=== PATIENT | male | born 1980 | race African-American/Black ===

== ENCOUNTER 2020-11-12 00:37 | Emergency (ER) | payer SELFPAY ==
[~2020-11-12] VITALS: Ht 180 cm; Wt 70.3 kg
[2020-11-12 00:53] VITALS: BP 163/71
[2020-11-12] MEDS ORDERED: LIDO20SO23 MM (01:11)
[2020-11-12] MEDS ORDERED: RX-AMOXICILLIN 500 MG CAP #3 PPK PO STA (01:11)
[2020-11-12] MEDS ORDERED: AMOX875T2 PO (01:11)
[2020-11-12] MEDS ORDERED: NAPR500T8 PO (01:11)
[2020-11-12] MEDS ORDERED: RX-NAPROXEN (NAPROSYN) 250 MG TAB PPK#4 PO STA (01:11)
--- NOTE | 2020-11-12 01:11 | ED EENT ---
History of Present Illness General Chief Complaint: Dental Problems/Pain Stated Complaint: TOOTH ACHE Nursing Triage Note: intermittant right upper dental pain x 1 week, reports worse tonight. Source: patient History of Present Illness Date Seen by Provider: Nov 12, 2020 Time Seen by Provider: 01:00 Initial Comments PT ARRIVES VIA POV FROM HOME C/O DENTAL PAIN TO RIGHT UPPER MOLAR / PREMOLAR AREA X 1 WEEK, WORSE TONIGHT NO RELIEF WITH TYLENOL FEELS SWOLLEN AROUND ADJACENT GUM, BUT NO SWELLING TO FACE NO FEVER HAS HAD SIMILAR PROBLEMS IN THE PAST, NO PRIOR DENTAL WORK ON THIS TOOTH PCP: NONE--JUST MOVED HERE. WORKS AT [employer] IN [place]. NO DENTIST ANYWHERE Allergies and Home Medications Allergies Coded Allergies: No Known Drug Allergies (Unverified , 11/12/20) Home Medications Amoxicillin 875 Mg Tablet, 875 MG PO BID Prescribed by: GHASSAN STEARNS on 11/12/20110 Lidocaine HCl 15 Ml Solution, 1-2 ML MM [id number] Prescribed by: GHASSAN STEARNS on 11/12/20110 Naproxen 500 Mg Tablet.dr, 500 MG PO BID Prescribed by: GHASSAN STEARNS on 11/12/20110 Patient Home Medication List Home Medication List Reviewed: Yes Review of Systems Review of Systems Constitutional: no symptoms reported Mouth: see HPI Throat: no symptoms reported Respiratory: no symptoms reported Cardiovascular: no symptoms reported Gastrointestinal: no symptoms reported Skin: no symptoms reported Neurological: No Symptoms Reported Past Auxcuuh-Orlnzc-Ofqqgm Hx Past Med/Social Hx: Reviewed and Corrections made Patient Social History Alcohol Use: Denies Use Smoking Status: Never a Smoker 2nd Hand Smoke Exposure: No Recent Infectious Disease Expo: No Recent Hopitalizations: No Immunizations Up To Date Tetanus Booster (TDap): Unknown Seasonal Allergies Seasonal Allergies: No Past Medical History Surgeries: No Respiratory: No Cardiac: No Neurological: No Genitourinary: No Gastrointestinal: No Musculoskeletal: No Endocrine: No HEENT: No Cancer: No Psychosocial: No Integumentary: No Blood Disorders: No Physical Exam Vital Signs Vital Signs - First Documented 11/12/20 00:53 Temp 36.8 Pulse 63 Resp 16 B/P (MAP) 163/71 (101) Pulse Ox 100 O2 Delivery Room Air Height, Weight, BMI Height: '" Weight: lbs. oz. kg; 21.00 BMI Method: General Appearance: WD/WN, no apparent distress Eyes: bilateral eye normal inspection Ears: bilateral ear auricle normal, bilateral ear canal normal, bilateral ear TM normal Nose: normal inspection Mouth/Throat: No mandibular swelling, No maxillary swelling, No trismus; other (TENDERNESS AND MILD ADJACENT GUM SWELLING TO RIGHT UPPER FIRST MOLAR. MULTIPLE FRONT TEETH WITH GOLD CAPS. ) Neck: non-tender, full range of motion, supple, normal inspection; No lymphadenopathy (R), No lymphadenopathy (L) Cardiovascular: regular rate, rhythm, no murmur Respiratory: normal breath sounds Neurologic/Psychiatric: motor analyst II-XII nml as tested, no motor/sensory deficits, alert, normal mood/affect, oriented x 3 Skin: normal color (PT IS BLACK), warm/dry, tattoos/piercings (EXTENSIVE TATTOOS OVER ENTIRE BODY INCLUDING FACE) Progress/Results/Core Measures Results/Orders My Orders Orders - GHASSAN STEARNS DO Rx-Amoxicillin Capsule (Rx-Polymox Capsu (11/12/20 01:11) Rx-Naproxen (Rx-Naprosyn) (11/12/20 01:11) Lidocaine 2% Viscous 15 Ml (Xylocaine Vi (11/12/20 01:15) Vital Signs/I&O 11/12/20 00:53 Temp 36.8 Pulse 63 Resp 16 B/P (MAP) 163/71 (101) Pulse Ox 100 O2 Delivery Room Air Blood Pressure Mean: 101 Progress Progress Note : Progress Note PT STATES HE HAS [facility] AND PLANS ON GOING THERE H IMSELF IN THE FUTURE. ADVISED HIM TO FOLLOW UP WITH THE DENTAL CLINIC THERE FOR FURTHER CARE OF THIS PROBLEM. Departure Impression Primary Impression: Dental infection Disposition: HOME, SELF-CARE Condition: Stable Departure-Patient Inst. Referrals: NO,LOCAL PHYSICIAN (PCP) Primary Care Physician [facility] Patient Instructions: Dental Pain (DC) Add. Discharge Instructions: FREQUENT SALT WATER SWISHES CONTINUE TYLENOL 1 GRAM 4 TIMES A DAY FOR PAIN OR FEVER FOLLOW UP WITH DENTAL CLINIC SOON POSSIBLE--CALL IN THE MORNING TO SCHEDULE AN APPOINTMENT All discharge instructions reviewed with patient and/or family. Voiced understanding. Scripts Naproxen (Naproxen) 500 Mg Tablet.dr 500 MG PO BID, #20 TAB Prov: GHASSAN STEARNS DO 11/12/20 Lidocaine HCl (Lidocaine HCl Viscous) 15 Ml Solution 1-2 ML MM [id number], #120 ML Prov: GHASSAN STEARNS DO 11/12/20 Amoxicillin (Amoxicillin) 875 Mg Tablet 875 MG PO BID, #20 TAB Prov: GHASSAN STEARNS DO 11/12/20 GHASSAN STEARNS DO Nov 12, 2020 01:11
[2020-11-12] MEDS ORDERED: LIDOCAINE 2% VISCOUS 15 ML UDC PO ONE (01:15)
== END 2020-11-12 01:24 | disposition home or self-care (01) ==
LOC: ER 00:40
DX: K04.7 Periapical abscess without sinus (principal)
CPT/HCPCS: 99283

== ENCOUNTER 2021-09-25 04:40 | Emergency (ER) | payer SELFPAY ==
[~2021-09-25] VITALS: Ht 180 cm; Wt 70.3 kg
[2021-09-25] MEDS ORDERED: KETOROLAC 60 MG/2 ML VIAL IM ONE (06:15)
--- NOTE | 2021-09-25 06:22 | ED Back Pain ---
General Chief Complaint: Back Problems Stated Complaint: RT CALF PAIN,UPPER RT SIDE BACK PAIN Nursing Triage Note: right upper calf, mid back pain x2 days, no injury. Source of Information: Patient Exam Limitations: No Limitations History of Present Illness Date Seen by Provider: Sep 25, 2021 Time Seen by Provider: 05:15 Initial Comments Patient to the ER by private conveyance with significant other chief complaint is awoken last night with some pain in his right back around the area of a knot. Has had this before in the past and it went away with some ibuprofen after about a day or so. No trauma no motor vehicle collisions falls or surgeries or other injuries. No imaging on his back. No numbness or tingling. Pain is on his right posterior thoracic ribs just inferior to the right scapula. He also noted some unrelated pain at the same time in the back of his right knee medial side. Worse with palpation or bending. Makes him limp when he walks. Again no trauma. No previous injuries or work-up. He does not have a primary care doctor. He has not take anything for the pain. He has had a 5-hour car ride in the last 4 days. No history of blood clots or family history of clotting diso rders. Allergies and Home Medications Allergies Coded Allergies: No Known Drug Allergies (Unverified , 11/12/20) Patient Home Medication List Home Medication List Reviewed: Yes Discontinued Medications Amoxicillin (Amoxicillin) 875 Mg Tablet, 875 MG PO BID Discontinued Reason: No Longer Taking Prescribed by: GHASSAN STEARNS on 11/12/20110 Last Action: Discontinued Lidocaine HCl (Lidocaine HCl Viscous) 15 Ml Solution, 1-2 ML MM [id number] Discontinued Reason: No Longer Taking Prescribed by: GHASSAN STEARNS on 11/12/20110 Last Action: Discontinued Naproxen (Naproxen) 500 Mg Tablet.dr, 500 MG PO BID Discontinued Reason: No Longer Taking Prescribed by: GHASSAN STEARNS on 11/12/20110 Last Action: Discontinued Review of Systems Constitutional: No chills, No diaphoresis EENTM: No ear discharge, No hearing loss All Other Systems Reviewed Negative Unless Noted: Yes Past Jzqvhmh-Wtdtvv-Bcycov Hx Patient Social History Tobacco Use?: No Substance use?: No Alcohol Use?: No Pt feels they are or have been: No Immunizations Up To Date Tetanus Booster (TDap): Unknown Seasonal Allergies Seasonal Allergies: No Past Medical History Surgery/Hospitalization HX: denies Surgeries: No Respiratory: No Cardiac: No Neurological: No Genitourinary: No Gastrointestinal: No Musculoskeletal: No Endocrine: No HEENT: No Cancer: No Psychosocial: No Integumentary: No Blood Disorders: No Physical Exam Vital Signs Vital Signs - First Documented 09/25/21 05:01 Temp 36.5 Pulse 61 Resp 16 B/P (MAP) 138/86 (103) Pulse Ox 100 O2 Delivery Room Air Capillary Refill : Less Than 3 Seconds Height, Weight, BMI Height: '" Weight: lbs. oz. kg; 21.00 BMI Method: General Appearance: No Apparent Distress, WD/WN HEENT: PERRL/EOMI, Pharynx Normal, Moist Mucous Membranes Neck: Full Range of Motion, Normal Inspection Cardiovascular: Regular Rate, Rhythm, No Edema, Normal Peripheral Pulses Respiratory: Lungs Clear, Normal Breath Sounds, No Accessory Muscle Use, No R espiratory Distress Back: No Vertebral Tenderness, Other (Rubbery round soft mobile mass consistent with a lipoma under the right scapula that is tender to palpation. Reproduces his symptoms.) Extremity: Normal Capillary Refill, No Calf Tenderness, No Pedal Edema, Swelling (Subtle in the right popliteal fossa), Other (Tenderness to the infra medial right popliteal fossa with no palpable mass. No erythema or warmth) Progress/Results/Core Measures Results/Orders My Orders Orders - KOLTON ANDREWS Ketorolac Injection (Toradol Injection) (09/25/21 06:15) Vital Signs/I&O 09/25/21 05:01 Temp 36.5 Pulse 61 Resp 16 B/P (MAP) 138/86 (103) Pulse Ox 100 O2 Delivery Room Air Blood Pressure Mean: 103 Progress Progress Note : Time: 06:19 Progress Note His back pain seems related to a large lipoma on his trunk. 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 Will refer him to Dr. Hawk to discuss elective removal of lipoma. He may have a Penaloza's cyst or less likely DVT given his recent long distance car ride. He does not want to wait around for a D-dimer or ultrasound at this time because he has to go get his kids. We will give him a shot of Toradol for his pain, a shot of Lovenox and he will schedule an ultrasound today outpatient. Results to be called back to the ER physician on duty. Departure Impression Primary Impression: Lipoma of torso Additional Impression: Right leg pain Disposition: 01 HOME, SELF-CARE Condition: Stable Departure-Patient Inst. Decision time for Depature: 06:21 Referrals: NO,LOCAL PHYSICIAN (PCP/Family) Primary Care Physician Patient Instructions: Penaloza's (Popliteal) Cyst, Deep Vein Thrombosis (DVT) ED, Lipoma Add. Discharge Instructions: Tylenol 1000 mg every 8 hours necessary for pain. Ibuprofen 800 mg every 8 hours necessary for pain. Warm heat applied to your back and knee to reduce pain. Call registration and set up a ultrasound appointment today. Before you leave they will give the ultrasound results to the ER physician to address with you. Return to the ER for chest pain shortness of air or other worrisome symptoms. At your leisure call Dr. Hawk, general surgery and request a follow-up appointment about having the lipoma removed from your back so that you do not keep getting these back pain issues. All discharge instructions reviewed with patient and/or family. Voiced understanding. Work/School Note: Work Release Form Date Seen in the Emergency Department: Sep 25, 2021 Return to Work: Sep 26, 2021 Restrictions: No Restrictions KOLTON ANDREWS Sep 25, 2021 06:22
[2021-09-25 06:28] VITALS: BP 137/84
[2021-09-25] MEDS ORDERED: ENOXAPARIN 80 MG/0.8 ML (LOVENOX) SYR SC ONE (06:30)
== END 2021-09-25 06:30 | disposition home or self-care (01) ==
LOC: EDUNIT# 04:40 → ER 04:44
DX: D17.1 Benign lipomatous neoplasm of skin and subcutaneous tissue of trunk (principal); M79.604 Pain in right leg
CPT/HCPCS: 99284

== ENCOUNTER → 2021-09-25 | Outpatient (CLI) | payer SELFPAY ==
[~2021-09-25] MED LIST: AMOX875T2 PO; LIDO20SO23 MM; NAPR500T8 PO
--- NOTE | 2021-09-25 11:35 | Diagnostic Imaging Report ---
CLINICAL INDICATION: DVT versus Penaloza's cyst. Patient with right lower extremity pain. COMPARISON: None PROCEDURE: Ultrasound venous ultrasound of the right lower extremity with multiple real-time grayscale images were obtained in various projections. Additional spectral analysis and color Doppler duple images were also obtained. FINDINGS: The deep venous system is well visualized and is easily compressible. There is no evidence of deep venous thrombosis, valvular incompetence, or significant collateral circulation. There is a 2.6 cm x 1.1 cm x 1.6 cm anechoic area involving the medial right popliteal fossa region suspected to represent a Penaloza's cyst. IMPRESSION: 1: There is no ultrasound Doppler evidence of deep venous thrombosis in the right lower extremity. 2: Likely small Penaloza's cyst in the right popliteal fossa region. I agree with preliminary report called to Dr. Smith by the fiber technologist at the time of this report. Dictated by: Dictated on workstation # [id number]
== END ==
LOC: RAD 10:37
PROVIDERS: ATTEND Emergency Medicine
DX: M79.661 Pain in right lower leg (principal)